=== PATIENT | male | born 1980 | race Two or more races ===

== ENCOUNTER 2025-06-12 09:27 | Emergency (ER) | payer OTHER, SELFPAY ==
[2025-06-12 09:33] VITALS: BP 169/98
[2025-06-12 10:09] VITALS: BP 130/96
[2025-06-12 10:10] VITALS: BP 130/96; BMI 24.2
[2025-06-12 10:34] LABS: Hematocrit 40.2 % (39.0-52.0); Hemoglobin 14.3 g/dL (13.0-18.0); Mean Corp Hgb Conc. 35.6 g/dL (33.0-37.0); Mean Corpuscular Volume 89.1 fL (80.0-94.0); Nucleated Red Blood Cells % 0 % (-); Platelet Count 222 10^3/uL (130-400); Red Cell Dist. Width 12.5 % (11.5-14.5)
[2025-06-12 10:59] LABS: ALT (SGPT) 21 U/L (0-50); AST (SGOT) 19 U/L (17-59); Albumin 4.7 g/dl (3.5-5.0); Alkaline Phosphatase 49 U/L (38-126); Blood Urea Nitrogen 13 mg/dl (9-20); Calcium 9.2 mg/dl (8.4-10.2); Carbon Dioxide 28 mmol/L (22-30); Chloride 106 mmol/L (98-107); Estimated Creatinine Clearance > 125 ml/min; Glucose 94 mg/dl (70-99); Potassium 4.0 mmol/L (3.5-5.1); Sodium 140 mmol/L (135-145); Total Protein 7.2 g/dl (6.3-8.2); eGFR > 60.00
[2025-06-12 11:00] VITALS: BP 115/81
[2025-06-12 11:12] LABS: Troponin I < 0.012 ng/ml
--- NOTE | 2025-06-12 11:15 | ED.GENMED ---
History of Present Illness
General
Chief Complaint: Chest Pain
Source: patient and spouse
Time Seen by Provider: 06/12/25 10:01
History of Present Illness
History of Present Illness:
Note:
CHIEF COMPLAINT(S)
Chest pain and discomfort.
HISTORY OF PRESENT ILLNESS
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 The patient described an initial 'twinge' followed by pressure. Concerned about the
possibility of a cardiac event, the patient took aspirin around 10 AM, approximately an hour after the onset of symptoms. The pain subsided somewhat but persisted as a dull ache throughout the day. On Friday, the symptoms intensified, maintaining
the patient�s attention, and were accompanied by left arm pain. By Friday night, the patient experienced a sensation of the heart beating forcefully, although the rhythm felt normal. This discomfort continued into Friday and affected the patients
ability to sleep. The chest pressure was noticeable under the ribs and occasionally radiated, although not exacerbated by physical exertion, such as climbing stairs. The patient denied symptoms like dizziness and reported no worsening with exertion.
Throughout the weekend, the persistent discomfort led to continuing concern about potential heart problems.
PAST MEDICAL AND SURGICAL HISTORY
The patient reports no previous medical problems or surgeries.
ADDITIONAL HISTORY OBTAINED FROM SOURCES OTHER THAN THE PATIENT
The patient's spouse provided history.
EXTERNAL RECORDS REVIEWED
The patient mentioned recent blood work conducted as part of an insurance evaluation, with results indicating a favorable health status, described as a Class A rating.
SOCIAL DETERMINANTS AFFECTING HEALTH
None reported or observed.
ALLERGIES
The patient reports no known allergies to medications.
MEDICATIONS
The patient does not take any prescribed medications but occasionally takes vitamins.
REVIEW OF SYSTEMS
- Cardiovascular: Persistent chest pressure and left arm pain. No dizziness or exertional chest pain reported.
- Musculoskeletal: Bruise to the right green, reported but not linked to chest pain.
- Respiratory: No difficulty in breathing or exacerbated symptoms upon exertion.
PHYSICAL EXAM
General: Alert, no acute distress.
Skin: Warm, dry. Bruising noted on the right green without significant swelling.
Head: Normocephalic, atraumatic.
Neck: Supple, trachea midline.
Eye, Ears, Nose, Mouth, and Throat: Oral mucosa moist.
Cardiovascular: Normal peripheral perfusion, No edema.
Respiratory: Respirations are non-labored.
Gastrointestinal: Abdomen nondistended.
Back: Normal range of motion, Normal alignment.
Musculoskeletal: Normal range of motion, normal strength.
Neurological: Alert and oriented to person, place, time, and situation. No focal neurological deficit observed.
Psychiatric: Cooperative, appropriate mood & affect.
PROBLEM LIST
Acute:
- Chest pain with associated left arm discomfort
- Increased heart awareness during periods of rest
- Bruise on right green
PLAN
1. Conducted electrocardiogram (EKG) � normal results reported.
2. Ordered cardiac enzyme blood tests to assess for cardiac damage.
3. Chest X-ray to rule out pulmonary causes.
4. Consider cardiology follow-up for possible stress testing if necessary.
5. Monitor and assess results of blood tests to rule out myocardial infarction or other cardiac events.
6. Reassurance provided to the patient regarding the low likelihood of heart attack based on risk factors and initial tests.
DIFFERENTIAL DIAGNOSIS
The Differential Diagnosis includes, in no particular order and is not limited to:
1. Angina pectoris
2. Myocardial infarction
3. Muscle strain
4. Gastroesophageal reflux disease (GERD)
5. Costochondritis
6. Anxiety-related chest pain
7. Pulmonary embolism
8. Pericarditis
9. Aortic dissection
10. Musculoskeletal pain
EKG
My independent EKG interpretation is:
- Time of EKG not specified.
- Rhythm: Normal sinus rhythm
- Heart rate: 72 beats per minute
- Notable intervals: Normal intervals
- [place]: Normal axis
- Abnormalities: Incomplete right bundle branch block pattern
- No ischemic changes
Disposition:
SUMMARY OF ENCOUNTER
The patient is a 44-year-old male who presented with left chest discomfort that began three days ago. His symptoms have been constant, leading to concern regarding a potential cardiac issue. Despite these concerns, his lab work returned normal
including a non-ischemic EKG and a normal chest x-ray that showed no abnormalities such as pneumothorax or infiltrates. The patient appeared well throughout the examination. Will refer to cardiology f/u hotline for urgent f/u.
DISPOSITION
The patient will be discharged with instructions to follow up with outpatient cardiology. He agrees to return if symptoms worsen. pt was referred to cardiology outpt f/u hotline.
PLAN
Refer the patient to an outpatient cardiology follow-up to further monitor and evaluate the chest discomfort. Instruct the patient to return to the emergency department if symptoms worsen.
INDEPENDENT REVIEW OF LABS AND INTERPRETATION OF TESTS
- My independent review of laboratory tests indicates normal troponin, complete blood count (CBC), and comprehensive metabolic panel (CMP).
- My independent EKG interpretation shows a normal sinus rhythm with no ischemic changes.
- My independent interpretation of the chest x-ray shows a normal mediastinum, no pneumothorax, no infiltrates, and overall normal findings.
MEDICAL DECISION MAKING
-Complexity of Data Reviewed:
Angina pectoris, Myocardial infarction, Muscle strain, Gastroesophageal reflux disease, Costochondritis, Anxiety-related chest pain, Pulmonary embolism, Pericarditis, Aortic dissection, Musculoskeletal pain.
-Data:
Category 1
Non-emergency department records reviewed, if applicable. External record reviewed: I reviewed the patients outpatient pharmacy records.
My independent interpretation of EKG shows normal sinus rhythm with no ischemic changes.
My independent interpretation of the chest x-ray indicates a normal mediastinum, no pneumothorax or infiltrates, and overall normal findings.
-Risk:
Consideration of Admission/Observation: Escalation of care including admission/observation was considered given the complexity and risk of the patients presenting complaint, exam findings, and/or their underlying comorbidities. However, ultimately I
feel the patient is safe for outpatient management with close follow-up. Reasoning: Work-up reassuring, does not reveal any acute life/organ-threatening processes, patients symptoms well controlled upon reevaluation, reexamination is reassuring,
vitals are stable, patient agreeable with discharge, reliable for follow-up.
DIAGNOSIS
Chest pain, unspecified � ICD-10: R07.9
Phy Exam
Physical Exam
Physical Exam:
.
Scores
Heart Score for Chest Pain Patients
STEMI patient?: No
History: Slightly or Non-Suspicious
ECG: Normal
Age: >45 - <65 years
Risk Factors: No Risk Factors
Troponin: </= Normal Limit
Heart Score for Chest Pain Patients: 1
Heart Score Risk: 2.5% MACE over next 6 weeks
Course
Orders/Labs/Results
Orders:
Orders
06/12/25 09:28
Electrocardiogram (*1) Urgent
Reason for Study: Chest Pain
EKG- Treatment ONCE
06/12/25 10:16
Complete Blood Count/With Diff Urgent
Comprehensive Metabolic Panel Urgent
Troponin I Urgent
CR Chest - 2 Views Urgent
Comment:
Reason For Exam: cp
Abnormal Lab Results
06/12/25
10:16
WBC 3.7 L 10^3/uL
(4.8-10.8)
RBC 4.51 L 10^6/uL
(4.70-6.10)
MCH 31.7 H pg
(27.0-31.0)
06/12/25 10:16
06/12/25 10:16
Vital Signs
Initial and Last Documented VS:
Initial Vital Signs
Temp Pulse Resp BP Pulse Ox
98.1 F 79 16 169/98 100
06/12/25 09:33 06/12/25 09:33 06/12/25 09:33 06/12/25 09:33 06/12/25 09:33
Last Documented Vital Signs
Temp Pulse Resp BP Pulse Ox
98.4 F 65 19 115/81 98
06/12/25 11:50 06/12/25 11:50 06/12/25 11:50 06/12/25 11:50 06/12/25 11:50
*Pulse Oximetry
SaO2: 99
Oxygen Mode of Delivery: Room air
Patient hypoxic: no
*Critical Care Note
Total Time (30-74mins, 75-104mins- exclusive of procedures): Not Applicable
ED Attending Note
-
Portions of this chart may have been created with voice recognition software.� Occasional wrong word or��sound alike� substitutions may have occurred due to the inherent limitations of voice recognition software.
Discharge Plan
Departure
Patient Disposition: Home (Routine Discharge)
Date of Disposition: 06/12/25
Time of Disposition: 11:16
Patient with high blood pressure during this ER visit?: Yes
Discharge Problem:
Atypical chest pain
Instructions: Chest Pain DCA Follow Up, BLOOD PRESSURE
Prescriptions:
No Action
No Current Medications
0
Referrals:
NONE,* [Family Provider, Internal Medicine]
Activity Restrictions/Additional Instructions:
Please avoid strenuous or exertional activity until cleared by cardiology. Please see cardiology in the next 48 hours for reevaluation. Return immediately for worsening pain, shortness breath, palpitations, sweating, nausea, weakness of any kind,
numbness, tingling or any other concerns.
Cardiology has been notified and a follow up appointment has been requested. Someone will call you on the next business day to schedule a follow up appointment.
Interventions
Interventions:
*Risk Screen - Suicide Last Done: 06/12/25 09:33
*General Assessment Last Done: 06/12/25 10:11
*Neglect/Abuse Screening Last Done: 06/12/25 09:33
*ED- Fall Risk Assessment Last Done: 06/12/25 10:11
*ED COVID-19 Vaccine History Last Done: 06/12/25 10:11
*ED Influenza Vaccine History Last Done: 06/12/25 10:11
*Nursing Disposition Last Done: 06/12/25 11:50
ED- Cardiac Assessment Last Done: 06/12/25 10:27
Discharge Date and Time
Discharge Date/Time: 06/12/25 11:50
Print Language: GREEK
[2025-06-12 11:50] VITALS: BP 115/81
== END 2025-06-12 11:50 | disposition home or self-care (01) ==
LOC: EMR 09:27
PROVIDERS: EMERGENCY PHYSICIAN Emergency Medicine
DX: R07.89 Other chest pain (principal); R03.0 Elevated blood-pressure reading, without diagnosis of hypertension
CPT/HCPCS: 99284; 71046; 80053; 84484; 85025; 93005